=== PATIENT | female | born 1985 | race Caucasian/White ===

== ENCOUNTER 2017-10-17 12:53 | Outpatient (CLI) | payer OTHER | END 2017-10-17 16:25 | disposition home or self-care (01) | LOC: OBT 12:53 → L-D 12:55 → OBT 16:25 | DX: O36.8130 Decreased fetal movements, third trimester, not applicable or unspecified (principal); O24.419 Gestational diabetes mellitus in pregnancy, unspecified control; O99.283 Endocrine, nutritional and metabolic diseases complicating pregnancy, third trimester; E03.9 Hypothyroidism, unspecified; Z79.4 Long term (current) use of insulin; Z3A.32 32 weeks gestation of pregnancy | CPT/HCPCS: 76818 ==

== ENCOUNTER 2017-10-19 08:06 | Outpatient (CLI) | payer OTHER | END 2017-10-19 09:03 | disposition home or self-care (01) | LOC: OBT 08:06 → L-D 08:06 → OBT 09:03 | DX: O24.415 Gestational diabetes mellitus in pregnancy, controlled by oral hypoglycemic drugs (principal); O99.283 Endocrine, nutritional and metabolic diseases complicating pregnancy, third trimester; E03.9 Hypothyroidism, unspecified; O36.8130 Decreased fetal movements, third trimester, not applicable or unspecified; Z3A.32 32 weeks gestation of pregnancy | CPT/HCPCS: 76818 ==

== ENCOUNTER 2017-11-26 09:23 | Outpatient (CLI) | payer OTHER | END 2017-11-26 11:15 | disposition home or self-care (01) | LOC: OBT 09:23 → L-D 09:24 → OBT 11:15 | DX: O24.419 Gestational diabetes mellitus in pregnancy, unspecified control (principal); Z3A.37 37 weeks gestation of pregnancy | CPT/HCPCS: 76818 ==

== ENCOUNTER 2017-11-30 09:13 | Outpatient (CLI) | payer OTHER | END 2017-11-30 10:15 | disposition home or self-care (01) | LOC: OBT 09:13 → L-D 09:14 → OBT 10:15 | DX: O24.415 Gestational diabetes mellitus in pregnancy, controlled by oral hypoglycemic drugs (principal); Z3A.38 38 weeks gestation of pregnancy | CPT/HCPCS: 76818 ==

== ENCOUNTER 2017-12-10 06:35 | Inpatient (IN) | payer OTHER ==
[2017-12-10] MEDS ORDERED: LACTATED RINGER'S 1,000 ML IV (07:15)
[2017-12-10] MEDS ORDERED: IBUPROFEN 600 MG TAB PO (07:30)
[2017-12-10] MEDS ORDERED: MISOPROSTOL 200 MCG TAB PR (07:30)
[2017-12-10] MEDS ORDERED: OXYTOCIN 30 UNITS/LR 500 ML IV ×2 (07:30)
[2017-12-10] MEDS ORDERED: LIDOCAINE 1% (MPF) 30 ML INJ INJ (07:30)
[2017-12-10] MEDS ORDERED: METHYLERGONOVINE 0.2 MG INJ IM (07:30)
[2017-12-10] MEDS ORDERED: CARBOPROST 250 MCG INJ IM (07:30)
[2017-12-10 08:11] LABS: ADD MAN DIFF? NO
[2017-12-10 08:15] LABS: BASOPHILS % 0.2 % (0.0-2.0); EOSINOPHILS # 0.2 10^3/ul (0.0-0.5); EOSINOPHILS % 1.6 % (0.0-7.0); HEMATOCRIT 34.8 % (37.0-47.0); HEMOGLOBIN 11.7 g/dl (12.0-16.0); LYMPHOCYTES # 2.3 10^3/ul (0.8-2.9); LYMPHOCYTES % 24.6 % (15.0-51.0); MEAN CORPUSCULAR HEMOGLOBIN 27.1 pg (29.0-33.0); MEAN CORPUSCULAR HGB CONC 33.6 g/dl (32.0-37.0); MEAN CORPUSCULAR VOLUME 80.6 fl (82.0-101.0); MONOCYTE # 0.5 10^3/ul (0.3-0.9); MONOCYTES % 5.4 % (0.0-11.0); NEUTROPHIL # 6.3 10^3/ul (1.6-7.5); NEUTROPHILS % 67.9 % (39.0-77.0); PLATELET COUNT 268 10^3/UL (140-415); RED BLOOD COUNT 4.32 10^6/ul (4.20-5.40); RED CELL DISTRIBUTION WIDTH 14.2 % (11.5-14.5)
[2017-12-10 08:15] LABS: WHITE BLOOD COUNT 9.3 10^3/ul (4.8-10.8)
[2017-12-10] MEDS: LACTATED RINGER'S 1,000 ML IV (08:25)
[2017-12-10 08:36] LABS: INR 0.97
[2017-12-10 08:37] LABS: PARTIAL THROMBOPLASTIN TIME 29.4 Sec (25.0-35.0)
[2017-12-10 08:39] LABS: GLUCOSE 102 mg/dl (70-220)
[2017-12-10] MEDS: MISOPROSTOL 25 MCG CAPSULE PO ×4 (08:53→22:36)
[2017-12-10] MEDS: LEVOTHYROXINE 112 MCG TAB PO (09:40)
[2017-12-10] MEDS: DEXTROSE 5%-LR 1,000 ML IV ×3 (10:01→23:15)
[2017-12-10 15:48] LABS: RAPID PLASMA REAGIN NONREACTIVE (NR)
[2017-12-11] MEDS: BUTORPHANOL 2 MG INJ IV ×2 (00:46→03:42)
[2017-12-11] MEDS: MISOPROSTOL 25 MCG CAPSULE PO ×2 (01:00→05:00)
[2017-12-11] MEDS: LACTATED RINGER'S 1,000 ML IV ×6 (02:21→21:14)
[2017-12-11] MEDS: LEVOTHYROXINE 112 MCG TAB PO (06:12)
[2017-12-11] MEDS: DEXTROSE 5%-LR 1,000 ML IV ×2 (07:15→15:15)
[2017-12-11] MEDS: OXYTOCIN 30 UNITS/LR 500 ML IV ×3 (08:22→23:39)
[2017-12-11] MEDS: FENTAnyl 2MCG/ML-ROPIV 0.2% 100 ML BAG EPI (08:50)
[2017-12-11] MEDS ORDERED: NALOXONE (0.4 MG/ML) INJ IV ×2 (09:30→19:00)
[2017-12-11] MEDS ORDERED: FENTAnyl 2MCG/ML-ROPIV 0.2% 100 ML BAG EPI (09:30)
[2017-12-11] MEDS ORDERED: DIPHENHYDRAMINE 50 MG INJ IV ×2 (09:30→19:00)
[2017-12-11] MEDS: CEFAZOLIN 2 GM/50 ML (PMX) 50 ML IVPB (15:30)
[2017-12-11] MEDS: ONDANSETRON 4 MG INJ IV ×2 (16:48→23:06)
[2017-12-11] MEDS ORDERED: LIDOCAINE 1.5%/EPI MPF (SDV) 30 ML VIAL (17:09)
[2017-12-11] MEDS ORDERED: FENTAnyl 50 MCG/ML VIAL (17:10)
[2017-12-11] MEDS ORDERED: PHENYLephrine (100 MCG/ML) 5ML SYG (17:48)
[2017-12-11] MEDS ORDERED: morphine SULFATE/PF (10 MG/10 ML) INJ (18:23)
[2017-12-11] MEDS ORDERED: morphine 2 MG INJ IV ×2 (19:00)
[2017-12-11] MEDS ORDERED: ONDANSETRON 4 MG INJ IV (19:00)
[2017-12-11] MEDS ORDERED: ZOLPIDEM 5 MG TAB PO (19:00)
[2017-12-11] MEDS ORDERED: GLUCOSE GEL 15 GRAM TUBE BUCCAL (20:00)
[2017-12-11] MEDS ORDERED: GLUCOSE GEL 15 GRAM TUBE PO ×2 (20:00)
[2017-12-11] MEDS ORDERED: DEXTROSE 50% 50 ML SYRINGE IV ×2 (20:00)
[2017-12-11] MEDS ORDERED: GLUCAGON 1 MG INJ IM (20:00)
[2017-12-11] MEDS: INSULIN ASPART [NOVOLOG] 3 ML PEN SC (21:00)
[2017-12-11] MEDS ORDERED: OXYCODONE/ACETAMINOPHEN (5/325) TAB PO (21:30)
[2017-12-11] MEDS ORDERED: METHYLERGONOVINE 0.2 MG INJ IM (21:30)
[2017-12-11] MEDS ORDERED: CARBOPROST 250 MCG INJ IM (21:30)
[2017-12-11] MEDS ORDERED: OXYTOCIN 30 UNITS/LR 500 ML IV (21:30)
[2017-12-11] MEDS ORDERED: MISOPROSTOL 200 MCG TAB PR (21:30)
[2017-12-11] MEDS: KETOROLAC 30 MG INJ IV (23:06)
[2017-12-12] MEDS: LEVOTHYROXINE 88 MCG TAB PO (06:20)
[2017-12-12 07:27] LABS: ADD MAN DIFF? NO
[2017-12-12 07:34] LABS: BASOPHILS % 0.1 % (0.0-2.0); EOSINOPHILS # 0.1 10^3/ul (0.0-0.5); EOSINOPHILS % 0.5 % (0.0-7.0); HEMATOCRIT 32.7 % (37.0-47.0); HEMOGLOBIN 10.8 g/dl (12.0-16.0); LYMPHOCYTES # 1.8 10^3/ul (0.8-2.9); LYMPHOCYTES % 12.3 % (15.0-51.0); MEAN CORPUSCULAR HEMOGLOBIN 26.9 pg (29.0-33.0); MEAN CORPUSCULAR VOLUME 81.5 fl (82.0-101.0); MEAN PLATELET VOLUME 11.8 fl (7.4-10.4); MONOCYTES % 6.9 % (0.0-11.0); NEUTROPHIL # 11.4 10^3/ul (1.6-7.5); PLATELET COUNT 225 10^3/UL (140-415); RED BLOOD COUNT 4.01 10^6/ul (4.20-5.40)
[2017-12-12 07:34] LABS: WHITE BLOOD COUNT 14.2 10^3/ul (4.8-10.8)
[2017-12-12] MEDS: ACCU-CHEK XX ×4 (07:35→21:00)
[2017-12-12] MEDS: INSULIN ASPART [NOVOLOG] 3 ML PEN SC ×4 (08:05→21:00)
[2017-12-12] MEDS: metFORMIN 500 MG TAB PO ×2 (08:41→18:08)
[2017-12-12] MEDS: LACTATED RINGER'S 1,000 ML IV ×3 (08:45→21:14)
[2017-12-12] MEDS: INFLUENZA VIRUS VACCINE 0.5 ML SYG IM* (18:47)
[2017-12-12] MEDS: OXYCODONE/ACETAMINOPHEN (5/325) TAB PO (20:38)
[2017-12-12] MEDS: SENNA/DOCUSATE NA (8.6MG/50MG) TAB PO (20:39)
[2017-12-12] MEDS: LANOLIN 7 GM TUBE TOP (20:39)
[2017-12-12] MEDS: IBUPROFEN 800 MG TAB PO (22:00)
[2017-12-13] MEDS: OXYCODONE/ACETAMINOPHEN (5/325) TAB PO ×2 (01:03→12:57)
[2017-12-13] MEDS: LACTATED RINGER'S 1,000 ML IV ×2 (05:14→13:14)
[2017-12-13] MEDS: LEVOTHYROXINE 88 MCG TAB PO (06:05)
[2017-12-13] MEDS: IBUPROFEN 800 MG TAB PO ×3 (06:05→22:10)
[2017-12-13] MEDS: ACCU-CHEK XX ×2 (07:35→12:00)
[2017-12-13] MEDS: INSULIN ASPART [NOVOLOG] 3 ML PEN SC ×2 (08:05→11:50)
[2017-12-13] MEDS: metFORMIN 500 MG TAB PO ×2 (08:49→18:06)
[2017-12-13] MEDS: SENNA/DOCUSATE NA (8.6MG/50MG) TAB PO ×2 (08:50→21:05)
[2017-12-13] MEDS: MAGNESIUM HYDROXIDE 30ML CUP PO (18:03)
[2017-12-14] MEDS: LEVOTHYROXINE 88 MCG TAB PO (05:34)
[2017-12-14] MEDS: IBUPROFEN 800 MG TAB PO ×2 (05:35→14:31)
[2017-12-14] MEDS: OXYCODONE/ACETAMINOPHEN (5/325) TAB PO ×2 (08:35→13:23)
[2017-12-14] MEDS: SENNA/DOCUSATE NA (8.6MG/50MG) TAB PO (08:36)
[2017-12-14] MEDS: metFORMIN 500 MG TAB PO (08:36)
[2017-12-14] MEDS: DIPHTH/TET/ACEL PERTUSS (ADULT) 0.5 ML VIAL IM* (12:54)
[2017-12-14] MEDS: LANOLIN 7 GM TUBE TOP (13:23)
== END 2017-12-14 18:50 | disposition home or self-care (01) | DRG 766 ==
LOC: L-D 06:35 → PP1 12-11 20:40
PROVIDERS: Obstetrics & Gynecology
PROC: 10D00Z1 Extraction of Products of Conception, Low, Open Approach (ICD-10-PCS; principal; 2017-12-11 18:00)
PROC: 3E033VJ Introduction of Other Hormone into Peripheral Vein, Percutaneous Approach (ICD-10-PCS; 2017-12-11 18:00)
DX: O24.12 Pre-existing type 2 diabetes mellitus, in childbirth (principal); E03.9 Hypothyroidism, unspecified; E11.9 Type 2 diabetes mellitus without complications; O99.284 Endocrine, nutritional and metabolic diseases complicating childbirth; Z3A.38 38 weeks gestation of pregnancy; Z37.0 Single live birth
CPT/HCPCS: 62319; 76818; 82947; 82962; 85025; 85610; 85730; 86592; 86850; 86900; 86901; 88307; 90715; 99464

== ENCOUNTER 2018-08-25 16:49 | Emergency (ER) | payer OTHER ==
[2018-08-25] MEDS: NEOMYC/POLYMYX/HC 7.5 ML OPH RIGHT EYE (19:33)
[2018-08-25] MEDS: NEOMYC/POLYMYX/DEXAMETH OPH 5 ML RIGHT EYE (19:33)
[2018-08-25] MEDS: predniSONE 20 MG TAB PO (19:36)
== END 2018-08-25 19:47 | disposition home or self-care (01) ==
LOC: FTE 16:49
DX: H10.9 Unspecified conjunctivitis (principal); M79.671 Pain in right foot; E11.9 Type 2 diabetes mellitus without complications
CPT/HCPCS: 99283

== ENCOUNTER 2018-08-26 04:34 | Emergency (ER) | payer OTHER ==
[2018-08-26] MEDS: ONDANSETRON 4 MG INJ IV (04:56)
[2018-08-26] MEDS: morphine 4 MG/ML VIAL IV (04:57)
[2018-08-26] MEDS: SOD CHLORIDE 0.9% 1,000 ML IV (04:57)
[2018-08-26 05:06] LABS: ADD MAN DIFF? NO
[2018-08-26 05:08] LABS: BASOPHILS % 0.3 % (0.0-2.0); EOSINOPHILS % 0.1 % (0.0-7.0); HEMATOCRIT 40.2 % (37.0-47.0); LYMPHOCYTES # 1.4 10^3/ul (0.8-2.9); LYMPHOCYTES % 12.6 % (15.0-51.0); MEAN CORPUSCULAR HEMOGLOBIN 25.8 pg (29.0-33.0); MEAN CORPUSCULAR HGB CONC 32.3 g/dl (32.0-37.0); MEAN CORPUSCULAR VOLUME 79.8 fl (82.0-101.0); MEAN PLATELET VOLUME 9.7 fl (7.4-10.4); MONOCYTE # 0.2 10^3/ul (0.3-0.9); MONOCYTES % 2.1 % (0.0-11.0); NEUTROPHIL # 9.4 10^3/ul (1.6-7.5); NEUTROPHILS % 84.4 % (39.0-77.0); PLATELET COUNT 434 10^3/UL (140-415); RED BLOOD COUNT 5.04 10^6/ul (4.20-5.40); RED CELL DISTRIBUTION WIDTH 13.2 % (11.5-14.5)
[2018-08-26 05:08] LABS: WHITE BLOOD COUNT 11.1 10^3/ul (4.8-10.8)
[2018-08-26 05:10] LABS: ADD UMIC YES; UR ASCORBIC ACID NEGATIVE (NEGATIVE); UR BILIRUBIN (Dip) NEGATIVE (NEGATIVE); UR BLOOD (Dip) NEGATIVE (NEGATIVE); UR CLARITY SLIGHTLY CLOUDY (CLEAR); UR COLOR YELLOW (YELLOW); UR GLUCOSE (Dip) 3+ mg/dL (NEGATIVE); UR KETONES (Dip) TRACE mg/dL (NEGATIVE); UR LEUKOCYTE ESTERASE (Dip) NEGATIVE Leu/ul (NEGATIVE); UR MUCUS MODERATE /HPF (NONE SEEN); UR NITRITE (Dip) NEGATIVE (NEGATIVE); UR RBC 4 /HPF (0-5); UR SPECIFIC GRAVITY (Dip) 1.031 (1.003-1.030); UR SQUAMOUS EPITHELIAL CELL FEW /HPF (FEW); UR TOTAL PROTEIN (Dip) 2+ mg/dl (NEGATIVE); UR UROBILINOGEN (Dip) NEGATIVE (NEGATIVE); UR WBC 2 /HPF (0-5)
[2018-08-26 05:23] LABS: ALANINE AMINOTRANSFERASE 12 IU/L (13-69); ALBUMIN 4.6 g/dl (3.3-4.9); ALBUMIN/GLOBULIN RATIO 1.09; ALKALINE PHOSPHATASE 79 IU/L (42-121); AMYLASE 69 U/L (11-123); ANION GAP 12 (5-13); ASPARTATE AMINO TRANSFERASE 68 IU/L (15-46); BILIRUBIN,INDIRECT 0.9 mg/dl (0-1.1); BILIRUBIN,TOTAL 0.9 mg/dl (0.2-1.3); BLOOD UREA NITROGEN 12 mg/dl (7-20); CALCIUM 9.7 mg/dl (8.4-10.2); CARBON DIOXIDE 28 mmol/L (21-31); CHLORIDE 102 mmol/L (97-110); CREATININE 0.58 mg/dl (0.44-1.00); Estimated GFR > 60 mL/min (>60); GLUCOSE 204 mg/dl (70-220); LIPASE 209 U/L (23-300); POTASSIUM 4.7 mmol/L (3.5-5.1); SODIUM 142 mmol/L (135-144); TOTAL PROTEIN 8.8 g/dl (6.1-8.1)
[2018-08-26 05:27] LABS: INR 0.96; PROTIME 12.9 Sec (11.9-14.9)
[2018-08-26 05:28] LABS: PARTIAL THROMBOPLASTIN TIME 30.6 Sec (23.0-35.0)
[2018-08-26 05:34] LABS: TROPONIN-I < 0.012 ng/ml (0.000-0.120)
== END 2018-08-26 06:40 | disposition home or self-care (01) ==
LOC: FTE 04:34
DX: K80.70 Calculus of gallbladder and bile duct without cholecystitis without obstruction (principal); K76.0 Fatty (change of) liver, not elsewhere classified; E11.9 Type 2 diabetes mellitus without complications; E03.9 Hypothyroidism, unspecified; Z79.84 Long term (current) use of oral hypoglycemic drugs
CPT/HCPCS: 36415; 71046; 76705; 80053; 81001; 81025; 82150; 83690; 84484; 85025; 85610; 85730; 87086; 93005; 96374; 96375; 99285-25

== ENCOUNTER 2019-03-16 17:20 | Emergency (ER) | payer OTHER ==
[2019-03-16] MEDS: ACETAMINOPHEN 500 MG TAB PO (20:03)
[2019-03-16 20:19] LABS: ADD UMIC NO; UR ASCORBIC ACID NEGATIVE (NEGATIVE); UR BILIRUBIN (Dip) NEGATIVE (NEGATIVE); UR BLOOD (Dip) NEGATIVE (NEGATIVE); UR CLARITY SLIGHTLY CLOUDY (CLEAR); UR COLOR YELLOW (YELLOW); UR GLUCOSE (Dip) NEGATIVE (NEGATIVE); UR KETONES (Dip) NEGATIVE (NEGATIVE); UR LEUKOCYTE ESTERASE (Dip) NEGATIVE Leu/ul (NEGATIVE); UR MUCUS FEW /HPF (NONE SEEN); UR NITRITE (Dip) NEGATIVE (NEGATIVE); UR RBC 0 /HPF (0-5); UR SPECIFIC GRAVITY (Dip) 1.021 (1.003-1.030); UR SQUAMOUS EPITHELIAL CELL FEW /HPF (FEW); UR TOTAL PROTEIN (Dip) NEGATIVE (NEGATIVE); UR UROBILINOGEN (Dip) NEGATIVE (NEGATIVE); UR WBC 6 /HPF (0-5)
[2019-03-16 20:20] LABS: ADD MAN DIFF? NO
[2019-03-16 20:22] LABS: WHITE BLOOD COUNT 10.7 10^3/ul (4.8-10.8)
[2019-03-16 20:22] LABS: BASOPHILS % 0.4 % (0.0-2.0); EOSINOPHILS # 0.4 10^3/ul (0.0-0.5); HEMATOCRIT 40.3 % (37.0-47.0); HEMOGLOBIN 12.6 g/dl (12.0-16.0); LYMPHOCYTES # 3.5 10^3/ul (0.8-2.9); LYMPHOCYTES % 32.6 % (15.0-51.0); MEAN CORPUSCULAR HEMOGLOBIN 25.4 pg (29.0-33.0); MEAN CORPUSCULAR HGB CONC 31.3 g/dl (32.0-37.0); MEAN CORPUSCULAR VOLUME 81.3 fl (82.0-101.0); MEAN PLATELET VOLUME 10.4 fl (7.4-10.4); MONOCYTE # 0.5 10^3/ul (0.3-0.9); MONOCYTES % 4.4 % (0.0-11.0); NEUTROPHIL # 6.3 10^3/ul (1.6-7.5); NEUTROPHILS % 58.3 % (39.0-77.0); PLATELET COUNT 378 10^3/UL (140-415); RED BLOOD COUNT 4.96 10^6/ul (4.20-5.40); RED CELL DISTRIBUTION WIDTH 14.3 % (11.5-14.5)
[2019-03-16 20:49] LABS: ALANINE AMINOTRANSFERASE 7 IU/L (13-69); ALBUMIN 4.7 g/dl (3.3-4.9); ALBUMIN/GLOBULIN RATIO 1.11; ALKALINE PHOSPHATASE 69 IU/L (42-121); ANION GAP 11 (5-13); ASPARTATE AMINO TRANSFERASE 17 IU/L (15-46); BILIRUBIN,INDIRECT 0.7 mg/dl (0-1.1); BILIRUBIN,TOTAL 0.7 mg/dl (0.2-1.3); BLOOD UREA NITROGEN 12 mg/dl (7-20); CALCIUM 9.2 mg/dl (8.4-10.2); CARBON DIOXIDE 25 mmol/L (21-31); CHLORIDE 105 mmol/L (97-110); Estimated GFR > 60 mL/min (>60); GLUCOSE 113 mg/dl (70-220); LIPASE 205 U/L (23-300); POTASSIUM 4.3 mmol/L (3.5-5.1); SODIUM 141 mmol/L (135-144); TOTAL PROTEIN 8.9 g/dl (6.1-8.1)
== END 2019-03-16 21:30 | disposition home or self-care (01) ==
LOC: FTE 17:20
DX: R10.11 Right upper quadrant pain (principal); E03.9 Hypothyroidism, unspecified
CPT/HCPCS: 36415; 80053; 81001; 81003; 81025; 83690; 85025; 99283

== ENCOUNTER 2019-03-19 19:47 | Emergency (ER) | payer OTHER ==
[2019-03-19] MEDS: FAMOTIDINE 20 MG TAB PO (20:48)
[2019-03-19] MEDS: IBUPROFEN 800 MG TAB PO (20:48)
== END 2019-03-19 22:32 | disposition home or self-care (01) ==
LOC: FTE 19:47
DX: R10.11 Right upper quadrant pain (principal); E03.9 Hypothyroidism, unspecified
CPT/HCPCS: 76705; 99284-25